=== PATIENT | female | born 1980 | race Hispanic/Latino ===

== ENCOUNTER → 2020-08-06 13:14 | Outpatient (CLI) | payer OTHER, SELFPAY ==
--- NOTE | 2020-08-06 13:49 | DI.MRI.S_ITS ---
PROCEDURE: MR LUMBAR SPINE WO CON INDICATIONS: Radiculopathy, lumbar region TECHNIQUE: Noncontrast sagittal T1 spin echo and T2 fast echo, sagittal STIR, axial T1 and T2 fast spin echo through the lumbar spine. In cases with scoliosis, additional coronal T2 fast spin echo may be performed. COMPARISON: None. FINDINGS: Image quality: Excellent. Alignment and Curvature: No plain films are available for comparison, for numbering purposes. Thus, for the purposes of this examination, 5 lumbar type vertebral bodies will be presumed, as denoted on the montage panel. This should be confirmed and correlated with plain films, prior to any lumbar spinal intervention. Mild grade 1 retrolisthesis of L3 on L4. Bone Marrow: Marrow is of normal overall signal. No acute vertebral body compression fractures. Minimal reactive signal within the endplates adjacent to the L3-L4, L4-L5, and L5-S1 intervertebral discs. Within the left posterior iliac wing there is an incompletely visualized 28 mm low T1 signal intensity focus. Spinal Cord: Conus medullaris terminates at the mid L1 level. Visualized cord demonstrates normal signal and size. Paraspinous Soft Tissues: No paravertebral masses. Moderate dependent edema within the posterior subcutaneous fat at the upper lumbar level. T12-L1: Normal appearance. L1-L2: Mild facet and ligamentum flavum hypertrophy. Mild epidural lipomatosis. Mild canal stenosis. No foraminal stenosis. L2-L3: Mild facet and ligamentum flavum hypertrophy. Mild canal stenosis. No foraminal stenosis. L3-L4: Mild disc desiccation. Small left far lateral broad-based protrusion. Mild facet and ligamentum flavum hypertrophy. Mild epidural lipomatosis. Mild canal stenosis. Mild bilateral left greater than right foraminal stenosis. L4-L5: Mild disc height loss and desiccation. Mild diffuse disc bulge with superimposed small central protrusion. Mild facet and ligamentum flavum hypertrophy. Moderate canal stenosis. Mild bilateral foraminal stenosis. Bilateral lateral recess stenosis with associated L5 nerve root compression. L5-S1: Moderate disc desiccation. Mild disc height loss and diffuse disc bulge. Mild bilateral facet and ligamentum flavum hypertrophy. Mild canal stenosis. Moderate subarticular foraminal stenosis bilaterally. IMPRESSION: 1. Multilevel degenerative disc and facet disease, as well as ligamentum flavum hypertrophy and epidural lipomatosis. 2. Mild multilevel canal stenosis. 3. Multilevel foraminal stenoses, worst at L5-S1 where there are moderate foraminal stenoses present. 4. Bilateral lateral recess stenosis at L4-L5 associated with L5 nerve root compression. Recommend correlation with clinical symptoms to ascertain relevance of this finding. 5. Incompletely visualized indeterminate low T1 intensity focus within the left posterior iliac wing. MRI of the pelvis with and without intravenous contrast is recommended for further assessment. Dictated by: Hang Ryan M.D. on 08/06/2020 at 14:36 Approved by: Hang Ryan M.D. on 08/06/2020 at 14:39
== END ==
PROVIDERS: PCP Physician Assistant; Referring Provider Physical Medicine & Rehabilitation; Visit Provider Physical Medicine & Rehabilitation
DX: M51.16 Intervertebral disc disorders with radiculopathy, lumbar region (principal); M51.17 Intervertebral disc disorders with radiculopathy, lumbosacral region; M48.061 Spinal stenosis, lumbar region without neurogenic claudication; M48.07 Spinal stenosis, lumbosacral region; E88.2 Lipomatosis, not elsewhere classified
CPT/HCPCS: 72148

== ENCOUNTER → 2020-08-18 11:40 | Outpatient (CLI) | payer OTHER, SELFPAY ==
--- NOTE | 2020-08-18 11:43 | DI.MRI.S_ITS ---
PROCEDURE: MR PELIS WO/W CON INDICATIONS: Other intervertebral disc displacement, lumbar reg TECHNIQUE: Noncontrast coronal T1 spin echo and STIR, sagittal T1 spin echo with fat saturation and STIR, axial T1 spin echo and T2 fast spin echo with fat saturation. Axial in and out of phase T1-weighted sequence. After the administration of contrast, axial/sagittal/coronal T1 spin echo with fat saturation through the pelvis. COMPARISON: [facility], MR, MR LUMBAR SPINE WO CON, 08/06/2020, 13:40. FINDINGS: Image quality: Excellent. Bones: An ill-defined area of decreased signal intensity is seen in the left posterior iliac bone adjacent to the sacroiliac joint without associated enhancement, which most likely represents sclerosis related to degenerative changes or prior sacroiliitis. No suspicious marrow replacing mass or abnormal osseous enhancement is identified. Degenerative changes in the lower lumbar spine are better evaluated on the dedicated MRI dated 08/06/2020. Soft tissues: A 1.6 x 1.4 x 1.2 cm ovoid lesion is seen adjacent to the distal coccyx anteriorly, with intermediate signal intensity on T2-weighted images and intrinsic hyperintense signal on T1-weighted images without contrast enhancement. There is suggestion of a possible fluid-fluid level on sagittal precontrast T1-weighted images. The scanned muscles demonstrate normal overall bulk and internal signal. Subcutaneous tissues appear normal as well. No abnormal soft tissue enhancement. The uterus is normal in size. No adnexal mass is seen. IMPRESSION: 1. Area of decreased signal intensity in the posterior left iliac bone adjacent to the sacroiliac joint most likely represents sclerosis related to prior sacroiliitis or degenerative changes. No associated enhancement or marrow replacing mass is seen. 2. Degenerative changes in the lower lumbar spine are better evaluated on dedicated lumbar spine MRI dated 08/06/2020. 3. Incidental 1.6 cm T1-hyperintense nonenhancing cyst in the retrorectal space is most likely a benign lesion such as a duplication cyst. Dictated by: Jordan Pyane M.D. on 08/18/2020 at 14:19 Approved by: Jordan Payne M.D. on 08/18/2020 at 14:29
== END ==
PROVIDERS: PCP Physician Assistant; Referring Provider Physical Medicine & Rehabilitation; Visit Provider Physical Medicine & Rehabilitation
DX: M51.26 Other intervertebral disc displacement, lumbar region (principal); M47.816 Spondylosis without myelopathy or radiculopathy, lumbar region; K62.89 Other specified diseases of anus and rectum
CPT/HCPCS: 72197

== ENCOUNTER → 2020-11-23 09:31 | Outpatient (CLI) | payer OTHER, SELFPAY ==
[2020-11-23 11:28] LABS: COVID19 -Nasal RAPID Negative (Negative)
== END ==
PROVIDERS: PCP Physician Assistant; Referring Provider Physician Assistant; Visit Provider Physician Assistant
DX: Z01.812 Encounter for preprocedural laboratory examination (principal); Z20.822 Contact with and (suspected) exposure to COVID-19
CPT/HCPCS: 87635

== ENCOUNTER 2020-11-25 14:09 | Day surgery (SDC) | payer OTHER, SELFPAY ==
[2020-11-23 10:28] VITALS: BMI 41.8
[2020-11-25] VITALS (11 sets, daily range): BP systolic 93–124; BP diastolic 51–78; PULSE 67–114; RESP 10–18; TEMP 36.3–37.6; O2SAT 92–98; BMI 41.8
--- NOTE | 2020-11-25 | DI.RAD.S_ITS ---
PROCEDURE: XR LUMBAR SPINE 2-3V INDICATIONS: L4-5 MICRODISCECTOMY TECHNIQUE: 2 views of the lumbar spine were acquired. COMPARISON: [facility] [place], RF, LUMBAR TRANSFORAMINAL KELLIE, 09/14/2020, 10:49. [facility], MR, MR PELVIS WO/W CON, 08/18/2020, 11:57. [facility], MR, MR LUMBAR SPINE WO CON, 08/06/2020, 13:40. FINDINGS: Bones: Localization frontal and lateral views optimized for visualization of access port in relationship to the disc space shows right posterolateral open (based on technologist film annotation close) access to the L4-L5 right-sided interlaminar notch region. Soft tissues: Overlying bowel gas pattern is normal. No suspicious soft tissue calcifications. IMPRESSION: Imaging shows access port for many discectomy overlying the right posterolateral interlaminar notch area of L4-L5. Dictated by: Michael Zaldivar M.D. on 11/25/2020 at 18:19 Approved by: Michael Zaldivar M.D. on 11/25/2020 at 18:22
[2020-11-25] MEDS: LACTATED RINGERS 1,000 ML 42 ML IV ×2 (14:38→17:42)
--- NOTE | 2020-11-25 16:47 | PM.PREOP ---
Pre-operative Note COVID-19 COVID-19 status: Negative Result date/Date tested (Pos, Neg/Pending): 11/23/20 Interval Note History & Physical reviewed/Exam performed by Physician: Yes Changes to H&P: No
[2020-11-25] MEDS: CEFAZOLIN 1 GM VIAL 2 GM IV (17:25)
--- NOTE | 2020-11-25 17:38 | SUR.OPER ---
Supine on padded [place] table with bilateral legs secured in padded positioning boots and suspended in positioning spars, operative leg in traction per surgeon. Head on one pillow. Arm on non-operative side secured on padded armboard <90 degrees abduction. Arm on operative side padded and resting across chest then secured with tape over sheet. Bilateral gel pads placed between patients outer thighs and [place] bed rails. Padded perineal post in place per surgeon.
[2020-11-25] MEDS: BUPIVACAINE 0.25% (PF) VIAL 30 ML INJ (17:44)
[2020-11-25] MEDS: EPINEPHrine 1 MG/ML 0.15 MG IV (17:46)
--- NOTE | 2020-11-25 18:24 | PM.OP.1 ---
Operative Date/Time/Diagnoses Date of procedure: 11/25/20 Time of procedure: 16:00 Pre-op diagnosis: 1. L4-5 disc herniation 2. Lumbar radiculopathy Post-op diagnosis: same Procedure & Clinicians Procedure: 1. L4-5 lumbar disc herniation 2. utilization of microsurgical technique and operating microscope Same procedure as scheduled: Yes Indications: Patient has been having chronic back pain and worsening lumbar radiculopathy. Patient failed multiple conservative management with worsening pain weakness and numbness in her lower extremity. Patient has been having difficulty performing activity of daily living. After discussing risks benefits of treatment options, patient elected proceed with surgery. Surgeon: Bri Tristan Core Layer Machine Operator: Kashif Britton Click Yes if Unassisted: No Anesthesia Type: General Operative Notes Closure Type: primary Specimen(s): none sent Estimated Blood Loss (mL): 10 Blood products transfused: none Procedure in detail: Patient was seen in the preoperative area. Risks and benefits of the surgery was discussed with the patient. Informed consent was obtained from the patient and placed in the chart. Surgical site was marked. Patient was taken to the operative room. General anesthesia was administered. Prophylactic antibiotic was given to the patient less than 30 min before the incision was made. Patient was placed into a prone position on the [place] table. Patient's back was then prepped and draped in the sterile fashion. Time-out was performed at this time. Using AP and lateral C-arm imaging the interval between L4-5 was identified and marked on patient's back. A 1 inch incision 1 in from midline was made on the right side. The fascia was incised in line with skin incision. Globus MARS retractors was placed inside the incision and docked onto the L4 lamina. Using microsurgical technique and operating microscope, a L4 laminotomy was performed using a Kerrison rongeur. Liagamentum flavum was resected at the site of the laminotomy. The disc space at L4-5 was identified. Microdiscectomy was performed by incising the annulus with #11 blade. Microcurettes and pituitary was used to removed herniated disc fragments of disc from the epidural space. After the microdiskectomy was completed, the area medial lateral superior and inferior to the area of the microdiskectomy was inspected and explored using a micro curette. No other impinging structure was identified. The wound was then irrigated with sterile normal saline. 40 mg Depo-Medrol was placed into the epidural space. The deep fascia was closed with 1-0 Vicryl. The subcutaneous tissue was closed with 2-0 Vicryl. The skin was closed with 3-0 nylon. Patient tolerated the procedure well. There were no complications. Patient was transferred recovery room in stable condition. Complications: none Post-operative Condition: stable Disposition: same day surgery Plan for aftercare: Discharge to home
[2020-11-25] MEDS: fentaNYL 100 MCG/2 ML INJ IV ×2 (18:39→18:47)
[2020-11-25] MEDS: OXYCODONE/ACETAMINOPHEN 5/325 TABLET 1 TAB PO (18:45)
[2020-11-25] MEDS: HYDROMORPHONE 2 MG INJ IV (19:06)
--- NOTE | 2020-11-25 19:25 | SUR.PHASEI ---
Patient dozing after being medicated for pain control. She has asked multiple times about her . He called the PACU to inquire about her status, so she called him on her cell phone and spoke briefly.
--- NOTE | 2020-11-25 20:20 | SUR.PHASEII ---
2001 DC'd home with spouse, Patient very polite and appreciative. Moves slowly with intent, instructed to avoid bending, lifting, and twisting. Stable on feet with RN standby. Patient stated that she felt ready to go home.
== END 2020-11-25 20:01 | disposition home or self-care (01) ==
PROVIDERS: PCP Physician Assistant; Referring Provider Orthopaedic Surgery Orthopaedic Surgery of the Spine; Visit Provider Orthopaedic Surgery Orthopaedic Surgery of the Spine
PROC: (CPT 63030; principal; 2020-11-25 15:45)
DX: M51.16 Intervertebral disc disorders with radiculopathy, lumbar region (principal); G47.33 Obstructive sleep apnea (adult) (pediatric); E66.9 Obesity, unspecified; Z68.41 Body mass index [BMI] 40.0-44.9, adult
CPT/HCPCS: 63030; 72100; 76000; J0171; J0690; J1100; J1170; J2250; J2405; J2704; J2920; J3010

== ENCOUNTER → 2021-02-09 12:58 | Outpatient (CLI) | payer OTHER, SELFPAY ==
--- NOTE | 2021-02-09 | DI.MRI.S_ITS ---
PROCEDURE: MR LUMBAR SPINE WO CON INDICATIONS: Spinal stenosis, lumbar region with neurogenic cla TECHNIQUE: Noncontrast sagittal T1 spin echo and T2 fast echo, sagittal STIR, axial T1 and T2 fast spin echo through the lumbar spine. In cases with scoliosis, additional coronal T2 fast spin echo may be performed. COMPARISON: None. FINDINGS: Image quality: Excellent. Alignment and Curvature: Normal lumbar vertebral body height and alignment. Bone Marrow: No suspicious focal marrow signal abnormality. Periarticular marrow edema adjacent to the right L4-L5 facets, with associated facet effusions and periarticular soft tissue edema. Spinal Cord: Normal position and appearance of the conus. Regional Soft Tissues: Prevertebral and paraspinous soft tissues are within normal limits otherwise. T12-L1: Normal appearance. L1-L2: Normal appearance. L2-L3: Normal appearance. L3-L4: Disc bulge flattens the ventral thecal sac. No mass effect upon the traversing L4 nerve roots. L4-L5: There is a diffuse disc bulge with a superimposed broad-based posterior disc protrusion. Disc material displaces the descending L5 nerve roots within both subarticular zones. Foraminal components of the disc bulge contribute to mild neural foraminal narrowing in conjunction with facet hypertrophy. L5-S1: Diffuse disc bulge with mild displacement of the descending S1 nerve roots in both subarticular zones. No neural foraminal stenosis. IMPRESSION: Degenerative changes in the lower lumbar spine, worst at L4-L5 where there is displacement of the descending L5 nerve roots resulting in potential impingement. Also at this level, periarticular bone marrow and soft tissue edema associated with facet osteoarthropathy on the right, a potential source of nonradicular axial back pain and potentially indicative of instability. Dictated by: Ed Zaman M.D. on 02/09/2021 at 14:46 Approved by: Ed Zaman M.D. on 02/09/2021 at 14:50
== END ==
PROVIDERS: PCP Physician Assistant; Referring Provider Orthopaedic Surgery Orthopaedic Surgery of the Spine; Visit Provider Orthopaedic Surgery Orthopaedic Surgery of the Spine
DX: M48.062 Spinal stenosis, lumbar region with neurogenic claudication (principal); M51.36 Other intervertebral disc degeneration, lumbar region; M89.48 Other hypertrophic osteoarthropathy, other site
CPT/HCPCS: 72148

== ENCOUNTER → 2024-12-12 15:29 | Outpatient (CLI) | payer OTHER, SELFPAY ==
--- NOTE | 2024-12-12 15:31 | DI.MRI.S_ITS ---
PROCEDURE: MR SHOULDER RT WO CON INDICATIONS: PAIN RIGHT SHOULDER TECHNIQUE: Noncontrast oblique coronal T2 fast spin echo with fat saturation, oblique sagittal T1 spin echo and T2 fast spin echo with fat saturation, axial T1 spin echo and T2 fast spin echo with fat saturation through the shoulder. COMPARISON: None. FINDINGS: Image quality: Excellent. Rotator cuff: Low to moderate grade articular and bursal surface partial thickness tear involving distal supraspinatus at its insertion on the humeral head is seen extending to musculotendinous junction. Distal infraspinatus and subscapularis tendinosis. No full-thickness rotator cuff tendon rupture. Sagittal images demonstrate mild supraspinatus muscle atrophy. Bones and bursae: No bone marrow contusions or fractures. Mild acromioclavicular joint osteoarthritic changes are seen with joint space narrowing and downward osteophyte formation depressing on musculotendinous junction of supraspinatus. Small amount of joint effusion and subacromial subdeltoid bursal fluid, no gross loose bodies. Type 2 acromion without an os acromiale. Capsule and soft tissues: There is no definite focal labral tear. Degenerative changes are noted involving anterior inferior glenoid labrum. Proximal intra-articular portion of long head of biceps tendinosis is seen. Thickened inferior glenohumeral ligament is seen. IMPRESSION: 1. Low to moderate grade articular and bursal surface partial thickness tear involving distal supraspinatus extending to musculotendinous junction. Distal infraspinatus and subscapularis tendinosis. No full-thickness rotator cuff tendon rupture. Mild supraspinatus muscle atrophy. 2. Mild acromioclavicular joint osteoarthritis. No fracture or dislocation. Small amount of joint effusion and subacromial subdeltoid bursal fluid, no loose bodies. 3. Degenerative changes involving anterior inferior glenoid labrum. No definite focal labral tear. 4. Proximal long head of biceps tendinosis. 5. Thickened inferior glenohumeral ligament which can be seen associated with clinical diagnosis of adhesive capsulitis. Dictated by: Grant Segura M.D. on 12/13/2024 at 12:53 Approved by: Grant Segura M.D. on 12/13/2024 at 13:09
== END ==
LOC: MRI 15:30
PROVIDERS: PCP Physician Assistant; Referring Provider Internal Medicine; Visit Provider Internal Medicine
DX: S46.011A Strain of muscle(s) and tendon(s) of the rotator cuff of right shoulder, initial encounter (principal); M19.011 Primary osteoarthritis, right shoulder; M25.411 Effusion, right shoulder
CPT/HCPCS: 73221

== ENCOUNTER 2025-01-31 06:38 | Day surgery (SDC) | payer OTHER, SELFPAY ==
[2025-01-24 09:53] VITALS: BMI 45.7
[2025-01-31] MEDS: ACETAMINOPHEN 325 MG TABLET 975 MG PO (06:59)
[2025-01-31] MEDS: LACTATED RINGERS 1,000 ML 42 ML IV (06:59)
[2025-01-31 07:16] VITALS: BP 148/76; PULSE 98; RESP 98; TEMP 36.4; O2SAT 16; BMI 45.7
--- NOTE | 2025-01-31 07:35 | PM.PREOP ---
Pre-operative Note COVID-19 COVID-19 status: Not tested Interval Note History & Physical reviewed/Exam performed by Physician: Yes Changes to H&P: No
--- NOTE | 2025-01-31 08:25 | SUR.OPER ---
Beach chair on padded OR bed. Head on head cradle, secured with foam straps. Non-operative arm secured <90 degrees abduction on padded arm board. Pillow under knees. Safety belt at thigh. Cloth tape over blanket over lower legs. Padded kidney post to right side. Final position approved by Dr. León.
[2025-01-31] MEDS: SODIUM CHLORIDE IRRIG SOLUTION 3,000 ML, EPINEPHrine 1 MG IRR (08:36)
[2025-01-31 09:30] VITALS: BP 126/58; PULSE 101; RESP 18; TEMP 36.3; O2SAT 92
[2025-01-31 09:35] VITALS: BP 115/65; PULSE 95; RESP 18; TEMP 36.3; O2SAT 95
[2025-01-31 09:40] VITALS: BP 119/60; PULSE 93; RESP 17; TEMP 36.2; O2SAT 94
[2025-01-31 09:46] VITALS: BP 125/63; PULSE 94; RESP 15; TEMP 36.2; O2SAT 95
--- NOTE | 2025-01-31 09:52 | P.OP_ITS ---
Operative Date/Time/Diagnoses Date of procedure: 01/31/25 Time of procedure: 08:24 Pre-op diagnosis: right shoulder subacromial bursitis and ac joint arthrosis Post-op diagnosis: same Procedure & Clinicians Procedure: 1. R shoulder arthroscopy with subacromial decompression 2. Open distal clavicle excision Same procedure(s) as scheduled: Yes Surgeon: Lydia León Wash Oil Pump Operator Helper: Corrine Yañez Anesthesia Type: General Operative Notes Findings: see below Closure Type: primary Specimen(s): none sent Applied: none Estimated Blood Loss (mL): 10 Blood products transfused: none Procedure in detail: Preoperative diagnosis: 1. R shoulder subacromial bursitis 2.? R shoulder ac joint arthritis Postoperative diagnosis: Same as above Procedure performed: 1. R shoulder arthroscopy with subacromial decompression 2. Open distal clavicle excision The patient was met in the preoperative hold area the right upper extremity was signed as the correct extremity. The patient was taken back to the operating room. The patient was placed in the beach chair position. All bony prominences were padded. The patient was positioned in the beach chair ensuring his neck was in neutral alignment. The patient was prepped and draped in the standard sterile fashion. A time-out was performed confirming the correct patient, correct procedure, correct extremity, initials on the operative site and administration of IV antibiotics A standard posterolateral viewing portal was utilized. A diagnostic arthroscopy was performed. The patient had an intact biceps tendon. The rotator cuff was intact. After finishing the diagnostic arthroscopy I then performed the subacromial decompression. I then placed the arthroscopic instruments in the subacromial space and the subacromial space was debrided. There was very thick bursitis that was debrided. The rotator cuff moved in continuity and was intact. Next my attention was drawn to the distal clavicle.? A saber incision was made just medial to the AC joint.? Dissection was taken down to the underlying fascia.? This was incised and thick flaps were made in line with the clavicle.? The AC joint was identified and approximately 1 cm of distal clavicle was removed with a sagittal saw.? A rasp was used to smooth the edges.? The wounds were copiously irrigated after I ensured that there was no impinging with adduction of the arm. ? All as were copiously irrigated and the arthroscopy portals were closed with 3-0 nylon. The distal clavicle fascia was closed with 0 Ethibond.? And the incision was closed with 2-0 vicryl and 3-0 Nylon.? A sterile dressing was applied of Xeroform, plain gauze, Medipore tape. At the end of the surgery a total of 25 cc of 0.25% Marcaine was placed into the incision sites. Patient was awoken and taken to the PACU in stable condition. Complications: none Post-operative Condition: stable Complications: none Post-operative Condition: stable Disposition: PACU
[2025-01-31] MEDS: hydrOXYzine 50 MG/ML INJ IM (10:15)
[2025-01-31 10:24] VITALS: BP 113/54; PULSE 87; RESP 16; O2SAT 98
== END 2025-01-31 11:00 | disposition home or self-care (01) ==
PROVIDERS: PCP Internal Medicine; Referring Provider Orthopaedic Surgery; Visit Provider Orthopaedic Surgery
PROC: (CPT 29805; principal; 2025-01-31 07:45)
DX: M19.011 Primary osteoarthritis, right shoulder (principal); M75.51 Bursitis of right shoulder
CPT/HCPCS: 29822; 29824; J0165; J0690; J1100; J1171; J1885; J2250; J2405; J2704; J3010; J3410